=== PATIENT | female | born 1980 | race Caucasian/White ===

== ENCOUNTER → 2017-09-06 | Outpatient (CLI) | payer BC ==
--- NOTE | 2017-09-06 19:04 | US ---
EXAMINATION TYPE: US pelvis complete transvag DATE OF EXAM: 09/06/2017 COMPARISON: NONE CLINICAL HISTORY: N94.6 Dysmenor, N92.0 Excessive Or Frequent Menses. Pelvic pain abnormal bleeding TECHNIQUE: Transvaginal (TV) Date of LMP: 08/23/2017 EXAM MEASUREMENTS: Uterus: 8.7 x 4.7 x 1.5 cm Endometrial Stripe: 1.48 cm Right Ovary: 3.7 x 2.0 x 2.4 cm 1. Uterus: Anteverted Hypoechoic area visualized right uterus measuring 1.6 x 1.8 x 1.6 cm 2. Endometrium: wnl 3. Right Ovary: wnl 4. Left Ovary: Obscured by overlying bowel gas 5. Bilateral Adnexa: wnl 6. Posterior cul-de-sac: wnl IMPRESSION: There is probably a right side 1.8 cm uterine fibroid. No adnexal mass or free fluid. Nor mal endometrium. Small cervical cysts noted. Left ovary is not seen.
== END ==
LOC: RADUSMAIN 18:01
PROVIDERS: ATTEND Obstetrics & Gynecology
DX: N88.8 Other specified noninflammatory disorders of cervix uteri (principal)
CPT/HCPCS: 76830